=== PATIENT | male | born 1980 | race Caucasian/White ===

== ENCOUNTER → 2018-06-04 | Outpatient (CLI) | payer OTHER ==
[~2018-06-04] MED LIST: GADOBUTROL 10 ML VIAL IVP ONE
== END ==
LOC: FIMAGING 09:54
PROVIDERS: ATTEND Family Medicine
DX: R20.0 Anesthesia of skin (principal); R41.89 Other symptoms and signs involving cognitive functions and awareness; R20.2 Paresthesia of skin; M48.061 Spinal stenosis, lumbar region without neurogenic claudication
CPT/HCPCS: A9585